=== PATIENT | female | born 1990 | race Caucasian/White ===

== ENCOUNTER 2019-03-02 14:32 | Emergency (ER) | payer OTHER, SELFPAY ==
[2019-03-02 14:35] VITALS: BP 132/77; PULSE 58; RESP 16; TEMP 36.7; O2SAT 100; BMI 27.4
--- NOTE | 2019-03-02 14:46 | DI.US.S_ITS ---
PROCEDURE: US OB >= 14 WEEKS FETUS INDICATIONS: 16 WEEKS , VAGINAL BLEEDING OUTSIDE/PRIOR DATING DATA: Last menstrual period (LMP): 11/09/18. LMP-based estimated date of delivery (JIMY): 08/16/19. First dating scan (date and location): Current study. Estimated date of delivery (JIMY) from first dating scan: demise. TECHNIQUE: Real-time scanning was performed of the fetus, with image documentation and biometric measurements. Endovaginal scanning: No needed for this study COMPARISON: None. FINDINGS: General: demise. Presentation: Transverse head to maternal left Placenta: Bicornuate uterus, placenta predominantly within the left cornua, what appears to be blood clot is present within the right cornua. Next Amniotic fluid index: Normal appearance. heart rate: None seen. Prolonged visualization documents demise. Maternal cervical canal: 3.2 cm long. Normal lower limit is 2.5 cm. biometrics: biometry is internally consistent with a current gestational age of 15 weeks 0 days, with estimated weight at the lower 7th percentile. Measurement variability for biometric dating: +/- 7 days from 14 weeks to 15 weeks 6 days gestation, +/- 10 days from 16 weeks to 21 weeks 6 days gestation, +/- 2 weeks from 22 weeks to 27 weeks 6 days gestation, +/- 3 weeks for 28 weeks gestation or later. weight reference: 4500 g or EFW >90/95% is considered macrosomia or large for gestational age. EFW <10% is small for gestational age. EFW 5% or less is considered intra-uterine growth restriction. IMPRESSION: demise. Bicornuate uterus, with the current gestation predominantly centered in the left cornua, and what appears to be blood clot is located within the right cornua. Normal amniotic fluid volume. No cardiac activity observed over the course of the examination. Current estimated gestational age is 15 weeks 0 days. Dictated by: Juan Neil M.D. on 03/02/2019 at 15:43 Approved by: Juan Neil M.D. on 03/02/2019 at 15:47
--- NOTE | 2019-03-02 14:53 | ED_ITS ---
[facility] - [facility] Last Filed: 03/02/19 19:55> General Chief complaint: OB/Uterine Contractions Stated complaint: 16 weeks , spotting Time Seen by Provider: 03/02/19 14:35 Source: patient Mode of arrival: Ambulatory Limitations: no limitations History of Present Illness HPI Narrative: The patient is a 28-year-old female who states she is 16 weeks with her 1st who presents with a chief complaint of spotting this morning. She states she woke up and noticed she was spotting. It stopped and then she had some more spotting at approximately 12:30 p.m.. She denies any dysuria urgency or frequency. She denies any abdominal pain cramping, l ightheadedness dizziness nausea vomiting or diarrhea. Last bowel movement this morning. Denies any vaginal discharge or concerns for sexually transmitted infections. She states she has not had an ultrasound yet. She goes to [facility] in [place] and lives on [address]. Related Data Home Medications Medication Instructions Recorded Confirmed No Known Home Medications 03/02/19 03/02/19 Allergies Allergy/AdvReac Type Severity Reaction Status Date / Time No Known Drug Allergies Allergy Verified 03/02/19 14:49 Review of Systems <[facility] Last Filed: 03/02/19 19:55> Review of Systems Narrative: GENERAL: Denies chills, fatigue, malaise, fever, sweats. HEENT: Denies sinus pain, ear pain, sore throat, difficulty swallowing, dizziness. RESPIRATORY: Denies dyspnea, cough, wheezing, hemoptysis, sputum. CARDIOVASCULAR: Denies chest pain, palpitations, orthopnea, edema, GASTROINTESTINAL: Denies nausea, vomiting, abdominal pain, diarrhea, co nstipation, melena. : See HPI MUSCULOSKELETAL: denies weakness, joint pain, or bony pain SKIN: Denies rash, skin lesions, or other NEUROLOGIC: Denies weakness, headache, numbness, change in speech, confusion, seizures, incoordination. PSYCHIATRIC: No concerning psychosocial issues. 12 point review of systems is negative except for those stated above Exam <[facility] Last Filed: 03/02/19 19:55> Narrative Exam Narrative: GENERAL: This is a well-nourished, well-developed patient, in no acute distress HEAD: Atraumatic. Normocephalic. No temporal or scalp tenderness. EYES: Pupils equal round and reactive. Extraocular motions intact. No scleral icterus. No injection or drainage. ENT: Nose without bleeding, purulent drainage or septal hematoma. Throat without erythema, tonsillar hypertrophy or exudate. Uvula midline. Airway patent. NECK: Trachea midline. No JVD or lymphadenopathy. Supple, nontender, no meningeal signs. CARDIOVASCULAR: Regular rate and rhythm without murmurs, gallops, or rubs. RESPIRATORY: Clear to auscultation. Breath sounds equal bilaterally. No wheezes, rales, or rhonchi. No cough. No increased respiratory effort. No accessory muscle use. GASTROINTESTINAL: Abdomen soft, non-tender, nondistended. No hepato- splenomegaly, or palpable masses. No guarding. EXTREMITIES: No clubbing, cyanosis, or edema. No joint tenderness, effusion, or edema noted. BACK: Nontender without deformity or crepitance. No flank tenderness. NEURO: AOx3. SKIN: No rash or erythema visible skin Initial Vital Signs Initial Vital Signs: Vital Signs Temperature 98.1 F 03/02/19 14:35 Pulse Rate 58 L 03/02/19 14:35 Respiratory Rate 16 03/02/19 14:35 Blood Pressure 132/77 03/02/19 14:35 Pulse Oximetry 100 03/02/19 14:35 <Karla Parikh MD - Last Filed: 03/02/19 20:06> Initial Vital Signs Initial Vital Signs: Vital Signs Temperature 98.1 F 03/02/19 14:35 Pulse Rate 58 L 03/02/19 14:35 Respiratory Rate 16 03/02/19 14:35 Blood Pressure 132/77 03/02/19 14:35 Pulse Oximetry 100 03/02/19 14:35 Course <LISA Kelly - Last Filed: 03/02/19 19:55> Orders Ordered: ED Orders 03/02/19 14:46 US OB >= 14 weeks Fetus Stat 03/02/19 14:54 Urine Microscopic Stat 03/02/19 14:56 ABO RH Type Stat Complete Blood Count AUTO DIFF Stat Comprehensive Metabolic Panel Stat HCG Quantitative Stat Vital Signs Vital signs: Vital Signs - 8 hr 03/02/19 14:35 03/02/19 17:55 Temperature 98.1 F Pulse Rate 58 L 89 Respiratory Rate 16 16 Blood Pressure 132/77 Pulse Oximetry 100 98 <Karla Parikh MD - Last Filed: 03/02/19 20:06> Orders Ordered: ED Orders 03/02/19 14:46 US OB >= 14 weeks Fetus Stat 03/02/19 14:54 Urine Microscopic Stat 03/02/19 14:56 ABO RH Type Stat Complete Blood Count AUTO DIFF Stat Comprehensive Metabolic Panel Stat HCG Quantitative Stat Vital Signs Vital signs: Vital Signs - 8 hr 03/02/19 14:35 03/02/19 17:55 Temperature 98.1 F Pulse Rate 58 L 89 Respiratory Rate 16 16 Blood Pressure 132/77 Pulse Oximetry 100 98 MDM - OB/Uterine Contractions <GABE Kelly - Last Filed: 03/02/19 19:55> Lab Data Result diagrams: 03/02/19 14:56 03/02/19 14:56 Labs: Lab Results 03/02/19 03/02/19 03/02/19 Range/Units 14:54 14:56 14:56 WBC 12.9 H (4.5-11.0) X10^3/uL RBC 4.53 (4.0-5.2) X10^6/uL Hgb 13.3 (12.0-16.0) g/dL Hct 38.4 (36-46) % MCV 84.8 (80-100) fL MCH 29.3 (26-34) PG MCHC 34.6 (30-36) % RDW 13.4 (11.6-14.8) % Plt Count 303 (150-400) X10^3/uL Neut % (Auto) 82.2 H (50-75) % Lymph % (Auto) 12.4 L (25-40) % [place] % (Auto) 4.8 (3-14) % Eos % (Auto) 0.3 L (2-4) % Baso % (Auto) 0.3 (0-2) % Neut # (Auto) 65622 H (2200-2366) /uL Lymph # (Auto) 1600 (8921-1827) /uL [place] # (Auto) 600 (0-900) /uL Eos # (Auto) 0 (0-450) /uL Baso # (Auto) 0 (0-100) /uL Sodium 139 (137-145) mmol/L Potassium 3.6 (3.4-5.1) mmol/L Chloride 108 H (98-107) mmol/L Carbon Dioxide 22 (22-32) mmol/L BUN 7 (7-17) mg/dL Creatinine 0.50 L (0.52-1.04) mg/dL Estimated GFR > 60.0 (>60) mL/min BUN/Creatinine Ratio 14.0 (6-22) Glucose 107 H (70-100) mg/dL Calcium 9.6 (8.4-10.2) mg/dL Total Bilirubin 0.5 (0.2-1.3) mg/dL AST 18 (14-36) IU/L ALT 13 (<35) IU/L Alkaline Phosphatase 53 (38-126) U/L Total Protein 7.2 (6.3-8.2) g/dL Albumin 4.4 (3.5-5.0) g/dL Globulin 2.8 (1.7-4.1) g/dL Albumin/Globulin Ratio 1.6 (1.0-2.8) HCG, Quant 5773.1 mIU/mL Urine RBC 1-5/hpf (0-5/HPF) Urine WBC None seen (0-5/HPF) Urine Bacteria Few (2-10) H (None) Ur Culture Indicated? Cult not indicated Blood Type 03/02/19 Range/Units 14:56 WBC (4.5-11.0) X10^3/uL RBC (4.0-5.2) X10^6/uL Hgb (12.0-16.0) g/dL Hct (36-46) % MCV (80-100) fL MCH (26-34) PG MCHC (30-36) % RDW (11.6-14.8) % Plt Count (150-400) X10^3/uL Neut % (Auto) (50-75) % Lymph % (Auto) (25-40) % [place] % (Auto) (3-14) % Eos % (Auto) (2-4) % Baso % (Auto) (0-2) % Neut # (Auto) (4644-4693) /uL Lymph # (Auto) (8116-1784) /uL [place] # (Auto) (0-900) /uL Eos # (Auto) (0-450) /uL Baso # (Auto) (0-100) /uL Sodium (137-145) mmol/L Potassium (3.4-5.1) mmol/L Chloride (98-107) mmol/L Carbon Dioxide (22-32) mmol/L BUN (7-17) mg/dL Creatinine (0.52-1.04) mg/dL Estimated GFR (>60) mL/min BUN/Creatinine Ratio (6-22) Glucose (70-100) mg/dL Calcium (8.4-10.2) mg/dL Total Bilirubin (0.2-1.3) mg/dL AST (14-36) IU/L ALT (<35) IU/L Alkaline Phosphatase (38-126) U/L Total Protein (6.3-8.2) g/dL Albumin (3.5-5.0) g/dL Globulin (1.7-4.1) g/dL Albumin/Globulin Ratio (1.0-2.8) HCG, Quant mIU/mL Urine RBC (0-5/HPF) Urine WBC (0-5/HPF) Urine Bacteria (None) Ur Culture Indicated? Blood Type O Positive Urine Dip Bedside Urine Glucose Negative Bedside Urine Bilirubin - Negative Bedside Urine Ketone +/- 5 Urine Specific [place] 1.005 Bedside Urine Occult Blood +++ Bedside Urine pH 6.0 Bedside Urine Protein - Negative Bedside Urine Urobilinogen - Negative Bedside Urine Nitrite - Negative Bedside Urine Leukocytes - Negative Esterase Imaging Data ultrasound: Radiologist's impression: [place] [address] Ultrasound Report Signed Patient: Shannan Mcmullen#: [id number] : 1990Acct:[id number] Age/Sex: 28 / FDate of Service: 03/02/19 Loc: ED Accession Number: [id number] Procedure: US OB >= 14 weeks Fetus Ordering Provider: Court CodyP-BC PROCEDURE: US OB >= 14 WEEKS FETUS INDICATIONS: 16 WEEKS , VAGINAL BLEEDING OUTSIDE/PRIOR DATING DATA: Last menstrual period (LMP): 11/09/18. LMP-based estimated date of delivery (JIMY): 08/16/19. First dating scan (date and location): Current study. Estimated date of delivery (JIMY) from first dating scan: demise. TECHNIQUE: Real-time scanning was performed of the fetus, with image documentation and biometric measurements. Endovaginal scanning: No needed for this study COMPARISON: None. FINDINGS: General: demise. Presentation: Transverse head to maternal left Placenta: Bicornuate uterus, placenta predominantly within the left cornua, what appears to be blood clot is present within the right cornua. Next Amniotic fluid index: Normal appearance. heart rate: None seen. Prolonged visualization documents demise. Maternal cervical canal: 3.2 cm long. Normal lower limit is 2.5 cm. biometrics: biometry is internally consistent with a current gestational age of 15 weeks 0 days, with estimated weight at the lower 7th percentile. Measurement variability for biometric dating: +/- 7 days from 14 weeks to 15 weeks 6 days gestation, +/- 10 days from 16 weeks to 21 weeks 6 days gestation, +/- 2 weeks from 22 weeks to 27 weeks 6 days gestation, +/- 3 weeks for 28 weeks gestation or later. weight reference: 4500 g or EFW >90/95% is considered macrosomia or large for gestational age. EFW <10% is small for gestational age. EFW 5% or less is considered intra-uterine growth restriction. IMPRESSION: demise. Bicornuate uterus, with the current gestation predominantly centered in the left cornua, and what appears to be blood clot is located within the right cornua. Normal amniotic fluid volume. No cardiac activity observed over the course of the examination. Current estimated gestational age is 15 weeks 0 days. Dictated by: Juan Neil M.D. on 03/02/2019 at 15:43 Approved by: Juan Neil M.D. on 03/02/2019 at 15:47 MDM Narrative Medical decision making narrative: The patient is a 28-year-old female who presents with a chief complaint of vaginal bleeding approximately 16 weeks . Basic labs were drawn, patient is O-positive. ultrasound illustrate demise. I discussed this with the patient's with her parents, nurse Johanny at bedside as well as . Pre that patient's request, I did call her forestry workers, discussed the findings with her. I did speak with Dr. Terrazas, Ob on-call who came to see the patient. I spent a great deal of time with the patient, discussing potential plan, providing emotional support. Patient is not on a pain or nausea medications and discard. Dr. Terrazas states that the patient can come back and be seen by her tomorrow on the OBGYN. Patient states that she will discuss with her forestry workers, come up with plan. She states she will come back to the emergency department for any acute concerns such as fever etc. No questions or concerns of discharge. Patient states understanding and has no questions or concerns. <Karla Parikh MD - Last Filed: 03/02/19 20:06> Lab Data Labs: Lab Results 03/02/19 03/02/19 03/02/19 Range/Units 14:54 14:56 14:56 WBC 12.9 H (4.5-11.0) X10^3/uL RBC 4.53 (4.0-5.2) X10^6/uL Hgb 13.3 (12.0-16.0) g/dL Hct 38.4 (36-46) % MCV 84.8 (80-100) fL MCH 29.3 (26-34) PG MCHC 34.6 (30-36) % RDW 13.4 (11.6-14.8) % Plt Count 303 (150-400) X10^3/uL Neut % (Auto) 82.2 H (50-75) % Lymph % (Auto) 12.4 L (25-40) % [place] % (Auto) 4.8 (3-14) % Eos % (Auto) 0.3 L (2-4) % Baso % (Auto) 0.3 (0-2) % Neut # (Auto) 50693 H (6921-1036) /uL Lymph # (Auto) 1600 (2511-0776) /uL [place] # (Auto) 600 (0-900) /uL Eos # (Auto) 0 (0-450) /uL Baso # (Auto) 0 (0-100) /uL Sodium 139 (137-145) mmol/L Potassium 3.6 (3.4-5.1) mmol/L Chloride 108 H (98-107) mmol/L Carbon Dioxide 22 (22-32) mmol/L BUN 7 (7-17) mg/dL Creatinine 0.50 L (0.52-1.04) mg/dL Estimated GFR > 60.0 (>60) mL/min BUN/Creatinine Ratio 14.0 (6-22) Glucose 107 H (70-100) mg/dL Calcium 9.6 (8.4-10.2) mg/dL Total Bilirubin 0.5 (0.2-1.3) mg/dL AST 18 (14-36) IU/L ALT 13 (<35) IU/L Alkaline Phosphatase 53 (38-126) U/L Total Protein 7.2 (6.3-8.2) g/dL Albumin 4.4 (3.5-5.0) g/dL Globulin 2.8 (1.7-4.1) g/dL Albumin/Globulin Ratio 1.6 (1.0-2.8) HCG, Quant 5773.1 mIU/mL Urine RBC 1-5/hpf (0-5/HPF) Urine WBC None seen (0-5/HPF) Urine Bacteria Few (2-10) H (None) Ur Culture Indicated? Cult not indicated Blood Type 03/02/19 Range/Units 14:56 WBC (4.5-11.0) X10^3/uL RBC (4.0-5.2) X10^6/uL Hgb (12.0-16.0) g/dL Hct (36-46) % MCV (80-100) fL MCH (26-34) PG MCHC (30-36) % RDW (11.6-14.8) % Plt Count (150-400) X10^3/uL Neut % (Auto) (50-75) % Lymph % (Auto) (25-40) % [place] % (Auto) (3-14) % Eos % (Auto) (2-4) % Baso % (Auto) (0-2) % Neut # (Auto) (8856-7129) /uL Lymph # (Auto) (3050-6592) /uL [place] # (Auto) (0-900) /uL Eos # (Auto) (0-450) /uL Baso # (Auto) (0-100) /uL Sodium (137-145) mmol/L Potassium (3.4-5.1) mmol/L Chloride (98-107) mmol/L Carbon Dioxide (22-32) mmol/L BUN (7-17) mg/dL Creatinine (0.52-1.04) mg/dL Estimated GFR (>60) mL/min BUN/Creatinine Ratio (6-22) Glucose (70-100) mg/dL Calcium (8.4-10.2) mg/dL Total Bilirubin (0.2-1.3) mg/dL AST (14-36) IU/L ALT (<35) IU/L Alkaline Phosphatase (38-126) U/L Total Protein (6.3-8.2) g/dL Albumin (3.5-5.0) g/dL Globulin (1.7-4.1) g/dL Albumin/Globulin Ratio (1.0-2.8) HCG, Quant mIU/mL Urine RBC (0-5/HPF) Urine WBC (0-5/HPF) Urine Bacteria (None) Ur Culture Indicated? Blood Type O Positive Urine Dip Bedside Urine Glucose Negative Bedside Urine Bilirubin - Negative Bedside Urine Ketone +/- 5 Urine Specific [place] 1.005 Bedside Urine Occult Blood +++ Bedside Urine pH 6.0 Bedside Urine Protein - Negative Bedside Urine Urobilinogen - Negative Bedside Urine Nitrite - Negative Bedside Urine Leukocytes - Negative Esterase Discharge Plan Departure Patient Disposition: Home Clinical Impression: demise Discharge Date/Time: 03/02/19 17:56 Instructions: Dealing With Miscarriage, DI for Miscarriage Activity Restrictions/Additional Instructions: At today you came to the emergency department for some vaginal bleeding during . Unfortunately we found that you have suffered demise at approximately 15 weeks. You were seen by Dr. Terrazas, our OBGYN and she states that you can come back to be seen tomorrow. I have included her contact information in your discharge instructions. Please push fluids, use [id number] medications as needed and able. Please follow up with her primary care provider as well. I have alerted your forestry workers Rachel at [facility] to what we found. Please expect contact from her. Please come back to the emergency department for any acute concerns. I have included a work note for the next week in case you needed. Prescriptions: No Action No Known Home Medications RF: 0 Referrals: Shirin Terrazas MD [Physician] - Stand Alone Forms: Work Release Note
[2019-03-02 15:04] LABS: Add Manual Diff / Slide Review NO; Basophils Absolute Auto 0 /uL (0-100); Basophils Percent Auto 0.3 % (0-2); Eosinophils Absolute Auto 0 /uL (0-450); Eosinophils Percent Auto 0.3 % (2-4); Hematocrit 38.4 % (36-46); Hemoglobin 13.3 g/dL (12.0-16.0); Lymphocytes Absolute Auto 1600 /uL (1100-4500); Lymphocytes Percent Auto 12.4 % (25-40); Mean Corpuscular HGB Conc 34.6 % (30-36); Mean Corpuscular Hemoglobin 29.3 PG (26-34); Mean Corpuscular Volume 84.8 fL (80-100); Monocytes Absolute Auto 600 /uL (0-900); Monocytes Percent Auto 4.8 % (3-14); Neutrophils Absolute Auto 10600 /uL (1500-7000); Neutrophils Percent Auto 82.2 % (50-75); Platelet Count 303 X10^3/uL (150-400); Red Blood Cell Count 4.53 X10^6/uL (4.0-5.2); Red Cell Distribution Width 13.4 % (11.6-14.8); White Blood Cell Count 12.9 X10^3/uL (4.5-11.0)
[2019-03-02 15:14] LABS: WBC Urine None Seen (0-5/HPF)
[2019-03-02 15:16] LABS: Alanine Aminotransferase 13 IU/L (<35); Albumin 4.4 g/dL (3.5-5.0); Albumin Globulin Ratio 1.6 (1.0-2.8); Alkaline Phosphatase 53 U/L (38-126); Aspartate Aminotransferase 18 IU/L (14-36); Bilirubin Total 0.5 mg/dL (0.2-1.3); Blood Urea Nitrogen 7 mg/dL (7-17); Calcium 9.6 mg/dL (8.4-10.2); Carbon Dioxide 22 mmol/L (22-32); Chloride 108 mmol/L (98-107); Estimated Glomerular Filt Rate > 60.0 mL/min (>60); Globulin 2.8 g/dL (1.7-4.1); Glucose 107 mg/dL (70-100); HEMOLYSIS < 15 (0-50); Potassium 3.6 mmol/L (3.4-5.1); Sodium 139 mmol/L (137-145); Total Protein 7.2 g/dL (6.3-8.2)
[2019-03-02 15:32] LABS: HCG Quantitative /Beta subunit 5773.1 mIU/mL
[2019-03-02 15:46] LABS: Bacteria Urine Few (2-10); RBC Urine 1-5/HPF (0-5/HPF)
[2019-03-02 15:51] LABS: Culture Indicated Urine Cult Not Indicated
[2019-03-02 17:55] VITALS: PULSE 89; RESP 16; O2SAT 98
--- NOTE | 2019-03-02 19:00 | PM.CN ---
History of Present Illness Consult details Date Patient Seen: 03/02/19 Time Patient Seen: 17:00 Chief complaint: 16 weeks , spotting Reason for consult: demise Requesting provider: Court Cody Narrative: demise [facility] Social History Smoking Status: Never smoker Meds Home Medications and Allergies Home Medications Medication Instructions Recorded Confirmed Type No Known Home Medications 03/02/19 03/02/19 History Allergies Allergy/AdvReac Type Severity Reaction Status Date / Time No Known Drug Allergies Allergy Verified 03/02/19 14:49 Review of Systems Review of Systems Narrative: Patient states a week ago she had some low back her tailbone pain that resolved. She began having some spotting today and presented to the emergency room. ROS Unobtainable: All systems reviewed & are unremarkable except as noted in HPI and below Exam Vital Signs (past 8 hours): - 03/02/19 14:35 03/02/19 17:55 Temperature 98.1 F Pulse Rate 58 L 89 Respiratory Rate 16 16 Blood Pressure 132/77 Pulse Oximetry 100 98 Oxygen Delivery Method Room Air Narrative Exam Narrative: Patient's abdomen is soft, nontender. Fundal height is 15-16 weeks. Pelvic exam was not performed. Objective Labs Result Diagrams: 03/02/19 14:56 03/02/19 14:56 Labs: Laboratory Results - last 24 hr 03/02/19 03/02/19 03/02/19 14:54 14:56 14:56 WBC 12.9 H RBC 4.53 Hgb 13.3 Hct 38.4 MCV 84.8 MCH 29.3 MCHC 34.6 RDW 13.4 Plt Count 303 Neut % (Auto) 82.2 H Lymph % (Auto) 12.4 L [place] % (Auto) 4.8 Eos % (Auto) 0.3 L Baso % (Auto) 0.3 Neut # (Auto) 14199 H Lymph # (Auto) 1600 [place] # (Auto) 600 Eos # (Auto) 0 Baso # (Auto) 0 Sodium 139 Potassium 3.6 Chloride 108 H Carbon Dioxide 22 BUN 7 Creatinine 0.50 L Estimated GFR > 60.0 BUN/Creatinine Ratio 14.0 Glucose 107 H Calcium 9.6 Total Bilirubin 0.5 AST 18 ALT 13 Alkaline Phosphatase 53 Total Protein 7.2 Albumin 4.4 Globulin 2.8 Albumin/Globulin Ratio 1.6 HCG, Quant 5773.1 Urine RBC 1-5/hpf Urine WBC None seen Urine Bacteria Few (2-10) H Ur Culture Indicated? Cult not indicated Blood Type 03/02/19 14:56 WBC RBC Hgb Hct MCV MCH MCHC RDW Plt Count Neut % (Auto) Lymph % (Auto) [place] % (Auto) Eos % (Auto) Baso % (Auto) Neut # (Auto) Lymph # (Auto) [place] # (Auto) Eos # (Auto) Baso # (Auto) Sodium Potassium Chloride Carbon Dioxide BUN Creatinine Estimated GFR BUN/Creatinine Ratio Glucose Calcium Total Bilirubin AST ALT Alkaline Phosphatase Total Protein Albumin Globulin Albumin/Globulin Ratio HCG, Quant Urine RBC Urine WBC Urine Bacteria Ur Culture Indicated? Blood Type O Positive Assessment & Plan Assessment and plan (1) demise: Current visit: No Status: Acute (2) 15 weeks gestation of : Current visit: No Status: Acute (3) Bicornuate uterus: Current visit: No Status: Acute Assessment & Plan narrative: Patient with 15 week demise with known bicornuate uterus. Discussed the demise is too big to just prefer seed with a D&C. Offered admission now versus later for induction of delivery of the demise. Informed she may end up with a D&C for retained placenta. Patient would like to go home and probably return tomorrow for delivery. She will call to let us know when she wishes to come in. Patient states she is Rh positive we will try to get records. Time Spent With Patient Time with patient: 25 - 35 minutes
== END 2019-03-02 17:56 | disposition home or self-care (01) ==
PROVIDERS: Emergency Provider Nurse Practitioner Family
DX: O02.1 Missed abortion (principal); Z3A.15 15 weeks gestation of pregnancy; Q51.3 Bicornate uterus
CPT/HCPCS: 36415; 76811; 80053; 81003; 81015; 84702; 85025; 86900; 86901; 99282; 99284

== ENCOUNTER 2023-03-23 07:34 | Emergency (ER) | payer OTHER, SELFPAY ==
[2023-03-23] VITALS (7 sets, daily range): BP systolic 107–118; BP diastolic 56–68; PULSE 58–74; RESP 16; TEMP 36.7; O2SAT 98–100; BMI 25.0
--- NOTE | 2023-03-23 08:11 | ED.ABDPAIN ---
HPI - Abdominal Pain General Chief Complaint: Abdominal Pain Stated Complaint: severe abd pain Time Seen by Provider: 03/23/23 08:06 Source: patient Mode of arrival: Ambulatory History of Present Illness HPI narrative: Patient 32-year-old female who presents today with epigastric pain. She reports that she is had pain off and on for sometimes it usually lasts for about 30 minutes she feels like he might be pulsating. However last night it was quite severe nauseous no vomiting. Pain is subsided now. It is associated with food. She is not any fever chills or chest pain. Related Data Home Medications Medication Instructions Recorded Confirmed No Known Home Medications 03/02/19 03/02/19 Allergies Allergy/AdvReac Type Severity Reaction Status Date / Time No Known Drug Allergies Allergy Verified 03/02/19 14:49 Patient History Social History Smoking Status: Never smoker Smoking Status: Never smoker Substance Use Type: does not use Exam Initial Vital Signs Initial Vital Signs: Vital Signs Temperature 98.0 F 03/23/23 07:45 Pulse Rate 64 03/23/23 07:45 Respiratory Rate 16 03/23/23 07:45 Blood Pressure 118/63 03/23/23 07:45 Pulse Oximetry 99 03/23/23 07:45 Oxygen Delivery Method Room Air 03/23/23 07:45 GENERAL: Pleasant alert well-appearing 32-year-old female and in no acute distress. HEENT: Head atraumatic,EOMI, pupils reactive, face symmetric, moist mucous membranes CARDIOVASCULAR: Regular rate and rhythm without murmurs, rubs or gallops. RESPIRATORY: Breath sounds equal bilaterally, no wheezes rales or rhonchi. ABDOMEN: Soft, nontender. Minimal epigastric no negative right Normoactive bowel sounds all 4 quadrants. No guarding or rebound. EXTREMITIES: Normal range of motion, no clubbing or edema. Neurovascularly intact NEUROLOGICAL: Alert and oriented x4.Normal gait and speech. SKIN: Warm, dry, no laceration, no petechiae, no rashes or lesions. Course Orders Ordered: ED Orders 03/23/23 08:12 US abdomen limited Stat 03/23/23 08:16 Complete Blood Count AUTO DIFF Stat Comprehensive Metabolic Panel Stat Lipase Stat 03/23/23 09:06 Urine Microscopic Stat Discontinued Medications Ondansetron HCl (Ondansetron 4 Mg Odt) 4 mg PO NOW PRN PRN Reason: Nausea And Vomiting Ondansetron HCl (Ondansetron 4 Mg/2 Ml Inj) 4 mg IV NOW PRN PRN Reason: Nausea And Vomiting Vital Signs Vital signs: Vital Signs - 8 hr 03/23/23 07:45 03/23/23 07:45 03/23/23 07:46 Temperature 98.0 F Pulse Rate 64 65 Respiratory Rate 16 Blood Pressure 118/63 Pulse Oximetry 99 99 100 Oxygen Delivery Method Room Air 03/23/23 07:46 03/23/23 08:00 03/23/23 08:30 Temperature Pulse Rate 74 71 Respiratory Rate Blood Pressure 118/63 Pulse Oximetry 98 100 Oxygen Delivery Method 03/23/23 09:20 03/23/23 09:21 03/23/23 09:21 Temperature Pulse Rate 58 L Respiratory Rate Blood Pressure 107/56 L Pulse Oximetry 99 99 Oxygen Delivery Method 03/23/23 09:30 03/23/23 09:30 Temperature Pulse Rate 64 Respiratory Rate Blood Pressure 116/68 Pulse Oximetry 98 Oxygen Delivery Method Room Air MDM - Abdominal Pain Lab Data 03/23/23 08:16 03/23/23 08:16 Labs: Lab Results 03/23/23 03/23/23 Range/Units 08:16 09:06 WBC 11.7 H (4.5-11.0) X10^3/uL RBC 4.85 (4.0-5.2) X10^6/uL Hgb 14.3 (12.0-16.0) g/dL Hct 42.1 (36-46) % MCV 86.9 (80-100) fL MCH 29.5 (26-34) PG MCHC 33.9 (30-36) % RDW 12.4 (11.6-14.8) % Plt Count 281 (150-400) X10^3/uL Neut % (Auto) 81.5 H (50-75) % Lymph % (Auto) 13.0 L (25-40) % Swisher % (Auto) 4.5 (3-14) % Eos % (Auto) 0.7 L (2-4) % Baso % (Auto) 0.3 (0-2) % Neut # (Auto) 9500 H (4720-6274) /uL Lymph # (Auto) 1500 (7741-7994) /uL Swisher # (Auto) 500 (0-900) /uL Eos # (Auto) 100 (0-450) /uL Baso # (Auto) 0 (0-100) /uL Sodium 137 (137-145) mmol/L Potassium 4.0 (3.4-5.1) mmol/L Chloride 104 (98-107) mmol/L Carbon Dioxide 25 (22-32) mmol/L BUN 12 (7-17) mg/dL Creatinine 0.47 L (0.52-1.04) mg/dL Estimated GFR > 60 (>60) mL/min BUN/Creatinine Ratio 25.5 H (6-22) Glucose 113 H (70-100) mg/dL Calcium 9.6 (8.4-10.2) mg/dL Total Bilirubin 0.5 (0.2-1.3) mg/dL AST 22 (14-36) IU/L ALT 24 (<35) IU/L Alkaline Phosphatase 73 (38-126) U/L Total Protein 7.6 (6.3-8.2) g/dL Albumin 4.6 (3.5-5.0) g/dL Globulin 3.0 (1.7-4.1) g/dL Albumin/Globulin Ratio 1.5 (1.0-2.8) Lipase 92 (23-300) U/L Urine RBC 30-100/hpf H (0-5/HPF) Urine WBC 0-1/hpf (0-5/HPF) Ur Squamous Epith Cells None seen (0-5/HPF) Urine Bacteria Few (2-10) H (None) Urine Mucus 1+ H (Negative) Ur Culture Indicated? Cult not indicated Point of care testing: Point of Care Testing Test Results Negative Urine Dip Bedside Urine Glucose Negative Bedside Urine Bilirubin - Negative Bedside Urine Ketone - Negative Urine Specific Nogal 1.020 Bedside Urine Occult Blood +++ Bedside Urine pH 6.0 Bedside Urine Protein - Negative Bedside Urine Urobilinogen - Negative Bedside Urine Nitrite - Negative Bedside Urine Leukocytes - Negative Esterase Imaging Data US - abdomen: Radiologist's Impression: PROCEDURE: US ABDOMEN LIMITED INDICATIONS: ruq TECHNIQUE: Real-time focused scanning was performed of the abdomen, with image documentation. COMPARISON: None. FINDINGS: The liver is mildly prominent in size and demonstrates no suspicious lesions. The liver echogenicity is considered to be within normal limits. No findings of gallstones or sludge are seen. The gallbladder wall is not thickened, measuring 3 mm or less. No specific pericholecystic fluid is seen. The sonographic Jackson sign is negative. There is no biliary dilatation, the common bile duct measures 3 mm. No significant pancreatic abnormality is seen on these images. IMPRESSION: The gallbladder demonstrates a normal sonographic appearance. No biliary dilatation is seen. Dictated by: Aravind Brito M.D. on 03/23/2023 at 8:23 Approved by: Aravind Brito M.D. on 03/23/2023 at 8:24 [facility] Narrative Medical decision making narrative: Patient healthy 32-year-old female who intermittently has some epigastric pain last night it was bad. It has now resolved. No fever or chills. It is not associated with like a gastric ulcer. He no tenderness in her right upper quadrant. She has normal bilirubin liver enzymes and lipase. Ultrasound does not show any cholecystitis or cholelithiasis. See no need for any further imaging. No evidence of infection. She actually reports that she does have a history of H pylori she was never treated for it. This may or may not be causing some of her issue I recommend taking omeprazole and getting retested for H pylori and seeing her PCP Labs reviewed by myself Imaging reviewed by myself Discharge Plan Departure Patient Disposition: Home Clinical Impression: Abdominal pain Instructions: DI for Abdominal Pain-Adult, DI for Helicobacter Pylori Infection Activity Restrictions/Additional Instructions: *You have been diagnosed with abdominal pain *What to do: At this time no explanation for your abdominal pain however blood work is overall reassuring ultrasound did not show any issue with your gallbladder. You may need further workup with your PCP possibly an EGD. You may need to be retested and treated for H pylori *Continue to take medications as directed May try omeprazole 20 mg once a day for 2 weeks to see if there is any improvement *Follow up with your primary care provider in 2-3 days or call [phone] *Return to ER if you should have increased pain nausea or vomiting such as or any new, worsening or concerning symptoms Prescriptions: No Action No Known Home Medications Stand Alone Forms: Patient Portal/API
[2023-03-23 08:27] LABS: Add Manual Diff / Slide Review NO; Basophils Absolute Auto 0 /uL (0-100); Basophils Percent Auto 0.3 % (0-2); Eosinophils Absolute Auto 100 /uL (0-450); Eosinophils Percent Auto 0.7 % (2-4); Hematocrit 42.1 % (36-46); Hemoglobin 14.3 g/dL (12.0-16.0); Lymphocytes Absolute Auto 1500 /uL (1100-4500); Mean Corpuscular HGB Conc 33.9 % (30-36); Mean Corpuscular Hemoglobin 29.5 PG (26-34); Mean Corpuscular Volume 86.9 fL (80-100); Monocytes Absolute Auto 500 /uL (0-900); Monocytes Percent Auto 4.5 % (3-14); Neutrophils Absolute Auto 9500 /uL (1500-7000); Neutrophils Percent Auto 81.5 % (50-75); Platelet Count 281 X10^3/uL (150-400); Red Blood Cell Count 4.85 X10^6/uL (4.0-5.2); Red Cell Distribution Width 12.4 % (11.6-14.8); White Blood Cell Count 11.7 X10^3/uL (4.5-11.0)
[2023-03-23 08:42] LABS: Alanine Aminotransferase 24 IU/L (<35); Albumin 4.6 g/dL (3.5-5.0); Albumin Globulin Ratio 1.5 (1.0-2.8); Alkaline Phosphatase 73 U/L (38-126); Aspartate Aminotransferase 22 IU/L (14-36); BUN Creatinine Ratio 25.5 (6-22); Bilirubin Total 0.5 mg/dL (0.2-1.3); Blood Urea Nitrogen 12 mg/dL (7-17); Calcium 9.6 mg/dL (8.4-10.2); Carbon Dioxide 25 mmol/L (22-32); Chloride 104 mmol/L (98-107); Estimated Glomerular Filt Rate > 60 mL/min (>60); Glucose 113 mg/dL (70-100); HEMOLYSIS < 15 (0-50); Lipase 92 U/L (23-300); Sodium 137 mmol/L (137-145); Total Protein 7.6 g/dL (6.3-8.2)
[2023-03-23 09:36] LABS: RBC Urine 30-100/HPF (0-5/HPF)
[2023-03-23 09:37] LABS: Bacteria Urine Few (2-10); Culture Indicated Urine Cult Not Indicated; Mucus Urine 1+ (Negative); Squamous Epithelial Cell Urine None Seen (0-5/HPF); WBC Urine 0-1/HPF (0-5/HPF)
== END 2023-03-23 09:55 | disposition home or self-care (01) ==
PROVIDERS: Emergency Provider Emergency Medicine
DX: R10.13 Epigastric pain (principal)
CPT/HCPCS: 36415; 76705; 80053; 81003; 81015; 81025; 83690; 85025; 96374; 99284